=== PATIENT | female | born 1940 | race Caucasian/White ===

== ENCOUNTER 2017-02-15 06:43 | Day surgery (SDC) | payer OTHER ==
[2017-02-12 10:36] LABS: HEMATOCRIT 40.7 % (36.0-48.0); HEMOGLOBIN 13.1 g/dL (12.0-16.0)
[2017-02-12 10:48] LABS: BUN (BLOOD UREA NITROGEN) 26 MG/DL (6-23); CHLORIDE, SERUM 105 MMOL/L (96-112); CO2 (CARBON DIOXIDE) 28 MMOL/L (24-34); CREATININE 2.01 MG/DL (0.55-1.02); GFR AFRICAN AMERICAN 27 ML/MIN (>=60); GFR NON AFRICAN AMERICAN 24 ML/MIN (>=60); GLUCOSE, SERUM 269 MG/DL (60-99); POTASSIUM, SERUM 4.9 MMOL/L (3.5-5.3); SODIUM, SERUM 141 MMOL/L (135-148)
--- NOTE | ~2017-02-15 | OP ---
Record Of Operation [facility] [address] [place]. [address] NAME: RICARDO FARRELL : 40 STATUS : [facility]#: [id number] AGE: 76 ADM/REG DATE : 02/15/17 MR#: [id number] REPORT SERV DATE: 02/16/17 DICTATED BY: LESLIE POE DATE: 02/16/17 REPORT STATUS : Draft TRANSCRIBED BY: CRIS DATE: 02/16/17 DATE OF PROCEDURE: 02/15/2017 PREOPERATIVE DIAGNOSIS: Dominant left thyroid lobe nodule, 4.2 cm in size. POSTOPERATIVE DIAGNOSES: Follicular lesion, low probability, 4.2 cm left thyroid lobe nodule. OPERATIVE PROCEDURE: Left thyroid lobectomy and isthmusectomy. INDICATIONS AND SIGNIFICANT HISTORY: The patient is a 76-year-old female with significant history of enlarging left thyroid lobe nodule. Needle biopsy suggests benign disease, but this nodule could be larger than 4 cm. The patient was felt to benefit from thyroid lobectomy and possible total thyroidectomy. OPERATIVE PROCEDURE AND FINDINGS: After informed consent was obtained, the patient was brought to the operating room and placed on the operating table in the supine position at which point general endotracheal anesthesia was induced by Anesthesia Service utilizing a NIM nerve monitoring tube. The NIM nerve monitor was set up to monitor recurrent laryngeal musculature throughout the course of the dissection. Skin incision was made in a natural skin crease, and subplatysmal flaps were elevated superiorly and inferiorly. Strap muscles were then divided in the midline and retracted laterally. The left thyroid lobe was then dissected, and middle thyroid veins were divided with bipolar cautery. The superior pole vessels were isolated and divided with Harmonic scalpel. Inferior pole vessels were divided in a similar fashion. The thyroid isthmus was then divided adjacent to the right thyroid lobe, and a combination of sharp and blunt dissection was used to remove the thyroid gland from its position in the left thyroid lobe from its position in the left neck. Inspection of the wound revealed no additional parathyroid tissue on the specimen and no additional bleeding. Wound was closed in multiple layers consisting of deep Vicryl suture followed by closure of the skin with Prolene. She was then turned back toward Anesthesia, aroused from anesthesia, and taken to the postanesthesia care unit in satisfactory condition. COMPLICATIONS: None. ESTIMATED BLOOD LOSS: Less than 20 mL. IV FLUIDS: Per Anesthesia. DLA/MODL Leslie Poe M.D. / [id number] Record Of Operation [address] [place] [address] NAME: RICARDO FARRELL : 40 STATUS : [facility]#: [id number] AGE: 76 ADM/REG DATE : 02/15/17 MR#: [id number] REPORT SERV DATE: 02/16/17 DICTATED BY: LESLIE POE DATE: 02/16/17 REPORT STATUS : Draft TRANSCRIBED BY: CRIS DATE: 02/16/17 CC: Yasmeen Mcginnis M.D.
[~2017-02-15 06:43] MED LIST: ADVIL PO; ASAB PO; CELEXA20 PO; KLONO2 PO; L20 PO; LANTUS SC; LEXAPRO20 PO; MCZ125 PO; MCZ25 PO; MIRALAX POWDER1 PKT PO; NAMENDA10 MG PO; NORCO1 TA1 PO; PRAVACHOL40 MG PO; PRIN10 PO; PRIN5 PO; RESTASIS OPH; ROCALTROL0.25 MCG PO; SEROQUEL25 PO; TOUJEO SC; TRAZ50 PO; VITAMIN D31000 UNIT PO; VITD PO; XANAX2 MG PO; ZOFRAN4 PO
== END 2017-02-15 15:39 | disposition home or self-care (01) ==
LOC: SDC 06:43
PROVIDERS: Otolaryngology
PROC: 0GTG0ZZ Resection of Left Thyroid Gland Lobe, Open Approach (ICD-10-PCS; principal; 2017-02-15 08:45)
DX: E04.1 Nontoxic single thyroid nodule (principal); E78.5 Hyperlipidemia, unspecified; F41.9 Anxiety disorder, unspecified; E11.9 Type 2 diabetes mellitus without complications; E66.9 Obesity, unspecified; F32.9 Major depressive disorder, single episode, unspecified; I10 Essential (primary) hypertension; Z90.89 Acquired absence of other organs; Z98.890 Other specified postprocedural states; Z79.52 Long term (current) use of systemic steroids; Z79.899 Other long term (current) drug therapy; Z79.891 Long term (current) use of opiate analgesic; Z83.3 Family history of diabetes mellitus; Z68.33 Body mass index [BMI] 33.0-33.9, adult; Z79.82 Long term (current) use of aspirin; Z88.8 Allergy status to other drugs, medicaments and biological substances; Z98.41 Cataract extraction status, right eye; Z98.42 Cataract extraction status, left eye; Z90.49 Acquired absence of other specified parts of digestive tract
CPT/HCPCS: 80048; 82962; 85014; 85018; 88307; 88331; 93005; J0690; J2250; J2405; J2710; J3010